=== PATIENT | male | born 1955 | race Caucasian/White ===

== ENCOUNTER 2024-06-10 17:43 | Emergency (ER) | payer OTHER, SELFPAY ==
[2024-06-10 17:52] VITALS: BP 135/84
[2024-06-10 17:56] VITALS: BP 135/84
[2024-06-10 18:15] LABS: % Basophils 0.6 % (0-2); % Eosinophils 0.9 % (0-6); % Immature Granulocytes 0.3 % (0-0.5); % Lymphocytes 32.1 % (20.5-51.1); % Monocytes 7.8 % (1.7-9.3); % Neutrophils 58.3 % (42.2-75.2); Absolute Basophils 0.1 10^3/uL (0-0.2); Absolute Eosinophils 0.1 10^3/uL (0-0.7); Absolute Monocytes 0.7 10^3/uL (0.1-0.6); Absolute Neutrophils 5.4 10^3/uL (1.4-6.5); Hematocrit 42.3 % (39.0-52.0); Hemoglobin 15.2 g/dL (13.0-18.0); Mean Corp Hgb Conc. 35.9 g/dL (33.0-37.0); Mean Corpuscular Hgb 32.8 pg (27.0-31.0); Mean Corpuscular Volume 91.4 fL (80.0-94.0); Mean Platelet Volume 10.4 fL (7.4-10.4); Nucleated Red Blood Cells % 0 % (-); Platelet Count 181 10^3/uL (130-400); Red Blood Cell Count 4.63 10^6/uL (4.70-6.10); Red Cell Dist. Width 12.4 % (11.5-14.5); White Blood Cell Count 9.3 10^3/uL (4.8-10.8)
[2024-06-10 18:37] LABS: ALT (SGPT) 23 U/L (0-50); AST (SGOT) 23 U/L (17-59); Albumin 4.5 g/dl (3.5-5.0); Alkaline Phosphatase 100 U/L (38-126); Blood Urea Nitrogen 16 mg/dl (9-20); Calcium 9.3 mg/dl (8.4-10.2); Carbon Dioxide 25 mmol/L (22-30); Chloride 103 mmol/L (98-107); Glucose 94 mg/dl (70-99); Potassium 4.1 mmol/L (3.5-5.1); Sodium 138 mmol/L (135-145); Total Bilirubin 0.8 mg/dl (0.2-1.3); Total Protein 7.2 g/dl (6.3-8.2); eGFR > 60.00
[2024-06-10 18:40] LABS: Troponin I < 0.012 ng/ml
[2024-06-10 21:22] VITALS: BP 130/93
[2024-06-10 21:23] VITALS: BMI 31.3
[2024-06-10 22:00] VITALS: BP 119/75
--- NOTE | 2024-06-10 23:41 | ED.GENMED ---
History of Present Illness
General
Chief Complaint: Chest Pain
Source: patient
Exam Limitations: none
Time Seen by Provider: 06/10/24 21:36
Nursing documentation reviewed up to this point in time: agreed with
History of Present Illness
History of Present Illness:
68 y/o M with h/o GERD
here with intermittent L chest pain x 10 days off and on, feels like a sharp pain or moderate pain that sometimes is in his upper back as well
previously has been reated to GERD
but has been takin ghis PPI for [facility] 5 weeks so he thinks it is probably not his GERD
no exertional component, no pleuritic pain
no nauesa/vomiting, sob, fever, cough, rash
pt called dr. jimenez's office (has had neg stress tests, last was 1 year ago) and dr. jimenez told his nurse to tell the patietn to come in for check up
pt has not had any new sypmtoms ntoignth than pervious the past 10 days
Past History
Past History
ED Past Medical History: GERD, HTN and Other (BPH); Negative CAD
ED Past Surgical History: Orthopedic (Knee surgery)
Social History
Tobacco: Non-smoker
Alcohol: None
Drug: None
Personal:
Living: with family
Employment: Employed
Family History
Family History: Other (father's side with CAD, mother with leukemia)
Review of Systems
Review of Systems
Allergies reviewed?: Yes
All Other Systems: Not applicable
Phy Exam
Physical Exam
Physical Exam:
GENERAL: Alert , in no apparent distress
EYE: pupils equal and reactive
NECK: Supple
ENT: o/p clr, mmm.
CARDIAC: Regular rate and rhythm .
LUNGS: Clear breath sounds bilaterally, no acute respiratory distress, no wheezes/rales/rhonchi
ABDOMEN: Soft, without focal tenderness, no r/g, no cvat, normal bowel sounds
NEUROLOGICAL: Alert and oriented, no focal neuro deficits
SKIN: Warm and dry, skin intact.
MUSCULOSKELETAL: No edema, well perfused. neg jai's sign
PSYCH: Normal and appropriate interaction.
Scores
Heart Score for Chest Pain Patients
STEMI patient?: No
History: Slightly or Non-Suspicious
ECG: Normal
Age: >/= 65 years
Risk Factors: No Risk Factors
Troponin: </= Normal Limit
Heart Score for Chest Pain Patients: 2
Heart Score Risk: 2.5% MACE over next 6 weeks
Course
Orders/Labs/Results
Orders:
Orders
06/10/24 17:45
Electrocardiogram (*1) Urgent
Reason for Study: Chest Pain
EKG- Treatment ONCE
06/10/24 18:09
Complete Blood Count/With Diff Urgent
Comprehensive Metabolic Panel Urgent
Troponin I Urgent
06/10/24 22:19
CR Chest - 2 Views Urgent
Comment:
Reason For Exam: chest pain
Abnormal Lab Results
06/10/24
18:09
RBC 4.63 L 10^6/uL
(4.70-6.10)
MCH 32.8 H pg
(27.0-31.0)
Absolute Monos (auto) 0.7 H 10^3/uL
(0.1-0.6)
06/10/24 18:09
06/10/24 18:09
Vital Signs
Initial and Last Documented VS:
Initial Vital Signs
Temp Pulse Resp BP Pulse Ox
36.9 C 79 18 135/84 96
06/10/24 17:52 06/10/24 17:52 06/10/24 17:52 06/10/24 17:52 06/10/24 17:52
Last Documented Vital Signs
Temp Pulse Resp BP Pulse Ox
36.9 C 67 8 119/75 96
06/10/24 17:52 06/10/24 22:15 06/10/24 22:15 06/10/24 22:00 06/10/24 23:00
MDM/Problems Addressed
Differential Diagnosis Includes:
acs, gerd, musculoskeltal pain, less likely PE
MDM/Problems Addressed:
68 y/o M with h/o gerd
here with intermittent chest pain x 10 days
nonexertional, quick lasting
no associated sypmtoms
well appearing
nsr nonischemic ekg
trop neg
chest xray indep reviewed and neg
no PE rf; perc neg
d/c home for chest pain hotline
spoke with ed attending ddr. dominguez
*Critical Care Note
Total Time (30-74mins, 75-104mins- exclusive of procedures): Not Applicable
ED Attending Note
-
Portions of this chart may have been created with voice recognition software.� Occasional wrong word or��sound alike� substitutions may have occurred due to the inherent limitations of voice recognition software.
Discharge Plan
Departure
Patient Disposition: Home (Routine Discharge)
Date of Disposition: 06/10/24
Time of Disposition: 22:54
Patient with high blood pressure during this ER visit?: No
Condition: Fair
Covid-19: Not Applicable
Discharge Problem:
Chest pain
Instructions: Chest Pain DCA Follow Up
Prescriptions:
No Action
famotidine [Pepcid] 40 MG tablet
40 mg PO DAILY
pantoprazole [Protonix] 20 MG tablet,delayed release (DR/EC)
40 mg PO DAILY
pantoprazole 40 MG tablet,delayed release (DR/EC)
40 mg PO DAILY Qty: 30 0RF
doxycycline hyclate 100 MG capsule
100 mg PO Q12 Qty: 14 0RF
Referrals:
NONE,* [Active] -
Activity Restrictions/Additional Instructions:
Your chest pain does not appear to be caused by an emergency today. It is very important that you follow-up with your bar attendant. We should be getting you an expedited appointment. In the meantime avoid heavy lifting or exertion
return for worsening or persistent symptoms
Interventions
Interventions:
*Risk Screen - Suicide Last Done: 06/10/24 21:25
*General Assessment Last Done: 06/10/24 21:28
*Neglect/Abuse Screening Last Done: 06/10/24 21:25
ED- Fall Risk Assessment Last Done: 06/10/24 21:25
*ED COVID-19 Vaccine History Last Done: 06/10/24 21:25
*Nursing Disposition Last Done: 06/10/24 23:06
ED- Cardiac Assessment Last Done: 06/10/24 21:25
Discharge Date and Time
Discharge Date/Time: 06/10/24 23:07
Print Language: GERMAN
== END 2024-06-10 23:07 | disposition home or self-care (01) ==
LOC: EMR 17:43
PROVIDERS: EMERGENCY PHYSICIAN Emergency Medicine; FAMILY PHYSICIAN Family Medicine
DX: R07.89 Other chest pain (principal); I10 Essential (primary) hypertension; K21.9 Gastro-esophageal reflux disease without esophagitis
CPT/HCPCS: 99285; 71046; 80053; 84484; 85025; 93005

== ENCOUNTER → 2024-06-30 16:12 | Outpatient (REF) | payer OTHER, SELFPAY | LOC: RAD 16:12 | PROVIDERS: ATTENDING PHYSICIAN Urology; FAMILY PHYSICIAN Family Medicine | DX: C61 Malignant neoplasm of prostate (principal) | CPT/HCPCS: 71260; 74177; Q9967 ==

== ENCOUNTER → 2024-07-23 13:24 | Outpatient (REF) | payer OTHER, SELFPAY | LOC: RCS 13:24 | PROVIDERS: ATTENDING PHYSICIAN Nurse Practitioner; FAMILY PHYSICIAN Family Medicine | DX: R07.9 Chest pain, unspecified (principal) | CPT/HCPCS: 93017; 93350 ==